=== PATIENT | female | born 1975 | race Caucasian/White ===

== ENCOUNTER 2018-10-28 06:21 | Emergency (ER) | payer BC, OTHER | END 2018-10-28 09:07 | disposition home or self-care (01) | LOC: ERS 06:21 | DX: F43.20 Adjustment disorder, unspecified (principal); R00.2 Palpitations | CPT/HCPCS: 99283 ==

== ENCOUNTER 2019-01-12 10:58 | Outpatient (CLI) | payer BC ==
--- NOTE | 2019-02-02 13:24 | MMO ---
Bilateral MAMMO Bilat Screen [facility]. CLINICAL HISTORY: Patient is 43 years old and is seen for screening. The patient has the following family history of breast cancer: paternal aunt, malignant (generic). The patient has no personal history of cancer. VIEWS: The views performed were: bilateral craniocaudal and bilateral mediolateral oblique. FILMS COMPARED: The present examination has been compared to prior imaging studies performed at [facility] on 08/20/2014, 02/26/2017 and 03/12/2018. MAMMOGRAM FINDINGS: There are scattered fibroglandular densities. There are no suspicious masses, suspicious calcifications, or new areas of architectural distortion. IMPRESSION: THERE IS NO MAMMOGRAPHIC EVIDENCE OF MALIGNANCY. A ROUTINE FOLLOW-UP MAMMOGRAM IN 1 YEAR IS RECOMMENDED. THE RESULTS OF THIS EXAM WERE SENT TO THE PATIENT. ACR BI-RADS Category 1 - Negative MAMMOGRAPHY NOTE: 1. A negative mammogram report should not delay a biopsy if a dominant of clinically suspicious mass is present. 2. Approximately 10% to 15% of breast cancers are not detected by mammography. 3. Adenosis and dense breasts may obscure an underlying neoplasm.
== END 2019-01-12 10:59 | disposition home or self-care (01) ==
LOC: BICMAMMO 10:58
PROVIDERS: ATTEND Physician Assistant
DX: Z12.31 Encounter for screening mammogram for malignant neoplasm of breast (principal); Z80.3 Family history of malignant neoplasm of breast
CPT/HCPCS: 77063; 77067

== ENCOUNTER 2019-10-21 14:52 | Emergency (ER) | payer BC ==
[~2019-10-21 14:52] MED LIST: Iopamidol-370 76% 500 ML 1 ML ONE
[2019-10-21 16:06] LABS: #Basophils 0.1 thou/uL (0.0-0.2); #Eosinphils 0.3 thou/uL (0.0-0.7); #Monocytes 0.9 thou/uL (0.11-0.59); #Neutrophils 7.4 thou/uL (1.40-6.50); %Basophils 0.6 % (0.0-1.0); %Eosinophils 2.6 % (0.0-10.0); %Monocytes 8.3 % (0.0-10.0); %Neutrophils 69.4 % (42.0-75.0); Hemoglobin 13.9 g/dL (12.0-16.0); Mean Corpuscular HGB CONC 33.6 g/dL (32.0-36.0); Mean Corpuscular Hemoglobin 31.2 pg (27.0-31.0); Mean Corpuscular Volume 92.9 fL (78.0-98.0); Mean Platelet Volume 7.2 fL (7.4-10.4); Platelet Count 305 thou/uL (130-400); RBC Distribution Width 12.1 % (11.5-14.5); Red Blood Cell (RBC) Count 4.44 mill/uL (4.20-5.40); White Blood Cell (WBC) Count 10.6 thou/uL (4.8-10.8)
[2019-10-21] MEDS ORDERED: Midazolam HCl 2 mg/2 ml Vial ONE (16:19)
[2019-10-21 16:33] LABS: ALT (SGPT) 11 U/L (8-55); AST (SGOT) 13 U/L (5-34); Alkaline Phosphatase 69 U/L (40-110); Anion Gap 14 mmol/L (10-20); BUN (Urea Nitrogen) 13 mg/dL (7.0-18.7); Bilirubin, Total 0.4 mg/dL (0.2-1.2); Calc. Creatinine Clearance 0 mL/min (70-130); Calcium 9.3 mg/dL (7.8-10.44); Carbon Dioxide 23 mmol/L (22-29); Chloride 105 mmol/L (98-107); Estimated GFR-MDRD 83; Globulin 3.3 g/dL (2.4-3.5); Glucose 76 mg/dL (70-105); Protein, Total 7.3 g/dL (6.0-8.3); Sodium 138 mmol/L (136-145)
[2019-10-21 17:38] LABS: Color Of CSF Supernatant COLORLESS (Colorless); Unspun CSF Color COLORLESS (Colorless)
[2019-10-21 17:39] LABS: Tube # 2
[2019-10-21] MEDS ORDERED: Famotidine/PF 20 mg/2ml Vial ONE (17:50)
[2019-10-21] MEDS ORDERED: diphenhydrAMINE 50 MG/ML VIAL ONE (17:50)
[2019-10-21] MEDS ORDERED: methylPREDNISolone Sod Succ/PF 125 MG/2 ML VIAL ONE (17:50)
[2019-10-21 17:56] LABS: CSF, Glucose 57 mg/dl (40-70); CSF, Protein 28 mg/dL (15-40)
[2019-10-21 18:06] LABS: CSF Source CSF; Clarity Clear (Clear); Tube # 4
[2019-10-21 18:07] LABS: Tube # 1
--- NOTE | 2019-10-21 19:06 | CT ---
CT NECK SOFT TISSUE WITH CONTRAST: 10/21/19 HISTORY: Severe pain. COMPARISON: None. FINDINGS: There is calcific tendonitis of the left longus coli muscle at the level of C12 at the junction of th e odontoid process in the body. There is subtle erosion of the anterior margin of C2. Likely some chr onic extrinsic mass effect. There is mild adjacent prevertebral soft tissue edema, not unexpected in calcific tendonitis. Moderate degenerative changes at the mid and lower cervical spine. No acute fracture. No malalignmen t. The mandible is intact with moderate degenerative changes of the temporomandibular joints, greater on the right. The palatine tonsils are without abscess or significant enlargement. Same is true for the nasopharyng eal tonsils. Lung apices are clear. IMPRESSION: Findings of calcific tendonitis left longus coli muscle with extensive adjacent reactive edema. There is also subtle single focal area of erosion of the anterior C2 vertebral body of the body/odontoid c onfluence. No significant enhancement of the prevertebral edema to suggest an abscess. There is also reactive edema within both longus coli muscle from C2 to C4. Close clinical follow-up recommended julieth clementine with conservative management. The inflammation and pain and is likely due to inflammatory/granulom atous response due to deposition of calcium hydroxyapatite crystals in the tendons of the longus coli muscle. POS: HOME
[2019-10-21] MEDS ORDERED: Ketorolac Tromethamine 30 MG/ML VIAL ONE (19:53)
== END 2019-10-21 19:59 | disposition home or self-care (01) ==
LOC: ERS 14:52
DX: M77.8 Other enthesopathies, not elsewhere classified (principal); I47.1 Supraventricular tachycardia
CPT/HCPCS: 36415; 62270; 70491; 80053; 82945; 83605; 84157; 85025; 87040; 87070; 87205; 87804; 89051; 96361; 96374; 96375; J1200; J1885; J2250; J2930; Q9967; S0028

== ENCOUNTER 2020-01-14 10:43 | Outpatient (CLI) | payer BC ==
--- NOTE | 2020-01-14 13:29 | MMO ---
Bilateral MAMMO Bilat Screen [facility]. CLINICAL HISTORY: Patient is 44 years old and is seen for screening. The patient has the following family history of breast cancer: paternal aunt, malignant (generic). The patient has no personal history of cancer. VIEWS: The views performed were: bilateral craniocaudal with tomosynthesis and bilateral mediolateral oblique with tomosynthesis. FILMS COMPARED: The present examination has been compared to prior imaging studies performed at [facility] on 01/12/2019, and at [facility] on 08/20/2014, 02/26/2017 and 03/12/2018. This study has been interpreted with the assistance of computer-aided detection. MAMMOGRAM FINDINGS: There are scattered fibroglandular densities. There are no suspicious masses, suspicious calcifications, or new areas of architectural distortion. IMPRESSION: THERE IS NO MAMMOGRAPHIC EVIDENCE OF MALIGNANCY. A ROUTINE FOLLOW-UP MAMMOGRAM IN 1 YEAR IS RECOMMENDED. THE RESULTS OF THIS EXAM WERE SENT TO THE PATIENT. ACR BI-RADS Category 1 - Negative MAMMOGRAPHY NOTE: 1. A negative mammogram report should not delay a biopsy if a dominant of clinically suspicious mass is present. 2. Approximately 10% to 15% of breast cancers are not detected by mammography. 3. Adenosis and dense breasts may obscure an underlying neoplasm. Reported by: BI BUSTAMANTE MD Electonically Signed: [id number]
== END 2020-01-14 10:44 | disposition home or self-care (01) ==
LOC: BICMAMMO 10:43
PROVIDERS: ATTEND Physician Assistant
DX: Z12.31 Encounter for screening mammogram for malignant neoplasm of breast (principal); Z80.3 Family history of malignant neoplasm of breast
CPT/HCPCS: 77063; 77067

== ENCOUNTER 2021-01-19 12:50 | Outpatient (CLI) | payer BC | END 2021-01-19 12:51 | disposition home or self-care (01) | LOC: BICMAMMO 12:50 | PROVIDERS: ATTEND Physician Assistant | DX: Z12.31 Encounter for screening mammogram for malignant neoplasm of breast (principal); Z80.3 Family history of malignant neoplasm of breast | CPT/HCPCS: 77063; 77067 ==